=== PATIENT | female | born 1950 | race Caucasian/White ===

== ENCOUNTER → 2017-01-21 | Outpatient (CLI) | payer MEDICARE ==
--- NOTE | 2017-01-22 11:10 | RAD ---
EXAM DESCRIPTION: Wrist,Right 3 Views CLINICAL HISTORY: 66 years,Female ,WRIST PAIN COMPARISON: None FINDINGS: The right wrist demonstrates no evidence of fractures or acute abnormalities. Soft tissues appear unremarkable. Joint spaces are unremarkable. Except for the first metacarpal phalangeal joint and scaphoid trapezium which demonstrates mild narrowing. 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 And scaphoid trapezium. Electronically signed by: Robin Keys MD 01/22/2017 11:09 AM CDT
--- NOTE | 2017-01-22 11:16 | RAD ---
EXAM DESCRIPTION: Wrist,Left 3 Views CLINICAL HISTORY: 66 years,Female ,WRIST PAIN COMPARISON: None FINDINGS: The left wrist demonstrates no evidence of fractures or acute abnormalities. Soft tissues appear unremarkable. Joint spaces are moderate severe loss at the scaphoid trapezium joint and mild loss at the first metacarpal phalangeal joint. IMPRESSION: Left wrist demonstrates moderate severe osteoarthritic changes of the scaphoid trapezium joint and mild at the first metacarpal phalangeal joint. Electronically signed by: Robin Keys MD 01/22/2017 11:15 AM CDT
== END ==
LOC: RAD 08:42
PROVIDERS: ATTEND Orthopaedic Surgery
DX: M25.531 Pain in right wrist (principal); M25.532 Pain in left wrist; M19.032 Primary osteoarthritis, left wrist; M19.031 Primary osteoarthritis, right wrist

== ENCOUNTER → 2017-03-19 | Outpatient (CLI) | payer MEDICARE | END | disposition home or self-care (01) | LOC: RESP 08:47 | PROVIDERS: ATTEND Orthopaedic Surgery | DX: Z01.818 Encounter for other preprocedural examination (principal) ==

== ENCOUNTER 2017-04-03 05:56 | Day surgery (SDC) | payer MEDICARE ==
[2017-04-03] MEDS ORDERED: ceFAZolin SODIUM 1 GM VIAL ONE (06:00)
[2017-04-03] MEDS ORDERED: LACTATED RINGERS 1,000 ML ONE (06:02)
[2017-04-03] MEDS ORDERED: SODIUM CHL 0.9% 50ML MIN-BAG+ 50 ML IVPB ONE (06:02)
[2017-04-03] MEDS ORDERED: LIDOCAINE 1% 50 ML VIAL INJ ONE (07:51)
[2017-04-03] MEDS ORDERED: BUPIVACAINE 0.25% INJ 30 ML VIAL INJ ONE (07:51)
[2017-04-03] MEDS: ceFAZolin SODIUM 1 GM VIAL ONE ×2 (08:52→09:00)
[2017-04-03] MEDS: VANCOMYCIN HCL INJ 1,000 MG VIAL IVPB ONE ×2 (08:53→09:00)
--- NOTE | 2017-04-03 09:16 | OP ---
DATE OF PROCEDURE: 04/03/17 PREOPERATIVE DIAGNOSIS: 1. Carpal tunnel syndrome. POSTOPERATIVE DIAGNOSIS: 1. Carpal tunnel syndrome. PROCEDURE: 1. Carpal tunnel release. SURGEON: Vinh Miller MD. SCOW DERRICK OPERATOR: Edgardo Mccurdy CST, -Carmita. ANESTHESIA: Local with sedation. COMPLICATIONS: None. FINDINGS: Thickening of the transverse carpal ligament. INDICATION: The patient has a history consistent with carpal tunnel syndrome that has failed conservative measures. Because of the failure of conservative measures, the patient has requested operative intervention. After discussing the risks, benefits and alternatives to operative therapy, the patient has given informed consent for carpal tunnel release. PROCEDURE: The patient was brought to the Operating Room and placed in the supine position. Sedation was administered and local anesthetic was injected into the operative area under sterile conditions. After the injection of anesthetic, the arm was sterilely prepped and draped. A longitudinal incision was made directly overlying the transverse carpal ligament and blunt dissection was carried down to the ligament. The transverse carpal ligament was sharply transected along its length and a [place] elevator was used to ensure complete release of the ligament. Once release had been confirmed, the wound was thoroughly irrigated and the wound was closed with Nylon suture. A sterile dressing was placed and the patient was taken to the Day Surgery Unit. POSTOPERATIVE INSTRUCTIONS: The patient has been encouraged to do range of motion of the digits and will followup with us in two days. #[id number] [facility]
[2017-04-03] MEDS ORDERED: PROPOFOL 200 MG/20 ML VIAL IV ONE (10:00)
[2017-04-03 10:31] VITALS: BP 125/70; TEMP 97.3; O2SAT 95
== END 2017-04-03 09:55 | disposition home or self-care (01) ==
LOC: AMB 05:56
PROVIDERS: ATTEND Orthopaedic Surgery
DX: G56.01 Carpal tunnel syndrome, right upper limb (principal); I10 Essential (primary) hypertension; K21.9 Gastro-esophageal reflux disease without esophagitis; G47.30 Sleep apnea, unspecified; Z79.899 Other long term (current) drug therapy
CPT/HCPCS: 01810; 64721; J0690; J3370; J3490; J7050; J7120

== ENCOUNTER → 2017-04-30 | Outpatient (CLI) | payer MEDICARE | END | disposition home or self-care (01) | LOC: LAB.O 10:30 | PROVIDERS: ATTEND Orthopaedic Surgery | DX: Z01.818 Encounter for other preprocedural examination (principal) ==

== ENCOUNTER 2017-05-15 05:47 | Day surgery (SDC) | payer MEDICARE ==
--- NOTE | 2017-05-09 10:05 | HP ---
CHIEF COMPLAINT: Left hand numbness and pain. HISTORY OF PRESENT ILLNESS: Ms. Donnelly is a 66-year-old female with a history of pain in the left hand in addition to numbness. She has had pain that overlies not only the wrist, but also the area of the A1 fernandez on the third and fourth digits. She also complaints of locking in those areas. Because of these symptoms, she has requested operative intervention. She has had carpal tunnel release performed on the contralateral side and it was successful. After discussing the risks, benefits and alternatives to operative therapy, the patient has given informed consent. PAST SURGICAL HISTORY: 1. Hysterectomy. 2. Diskectomy. 3. Carpal tunnel release. MEDICATIONS: 1. Irbesartan. 2. Nifedipine. 3. Rosuvastatin. 4. Sertraline. 5. Trazodone. ALLERGIES: NO KNOWN DRUG ALLERGIES. CODE STATUS: Full code. IMMUNIZATIONS: Up to date. SOCIAL HISTORY: The patient does not drink, smoke or use any illicit drugs. FAMILY HISTORY: None pertinent to today's complaint. REVIEW OF SYSTEMS: Negative except as indicated in the History of Present Illness. PHYSICAL EXAMINATION: VITAL SIGNS: Blood pressure 129/70. Pulse 83. Height 5'2". Weight 151. MENTAL STATUS: The patient is awake, alert, and is able to give a good history and participate in the physical. The patient is oriented to person, place and time. SKIN: Normal tone and turgor. HEENT: Normocephalic, atraumatic. Pupils equal, round and reactive. Mucosal membranes are moist. NECK: Normal range of motion. No thyromegaly, no lymphadenopathy. CHEST: Normal respiratory excursion. CARDIAC: Regular rate and rhythm. No murmurs, rubs or gallops. MUSCULOSKELETAL: She has positive carpal compression test and positive Tinel' s. She has some very minor thenar atrophy. She does have full production team member strength. She does have pain to palpation in the area of the A1 fernandez of the third and fourth digits. She has palpable clicking at the A1 fernandez of the third and fourth digits as well. She has no deformity of the digits, no deformity in the hand and there is no malalignment. ASSESSMENT: 1. Carpal tunnel syndrome. 2. Trigger finger times two. PLAN: The plan at this point is for carpal tunnel release and trigger finger release times two. We have discussed the risks, benefits, and alternatives to that and the patient has given informed consent. [facility][id number] [facility]
[2017-05-15] MEDS ORDERED: BUPIVACAINE 0.25% INJ 30 ML VIAL INJ ONE (07:52)
[2017-05-15] MEDS ORDERED: ceFAZolin SODIUM 1 GM VIAL ONE (07:52)
[2017-05-15] MEDS ORDERED: LIDOCAINE 1% 50 ML VIAL INJ ONE (07:52)
[2017-05-15] MEDS ORDERED: SODIUM CHL 0.9% 50ML MIN-BAG+ 50 ML IVPB ONE (08:22)
[2017-05-15] MEDS ORDERED: LACTATED RINGERS 1,000 ML ONE (08:22)
[2017-05-15] MEDS ORDERED: MIDAZOLAM INJ 2 MG/2 ML VIAL ONE (09:37)
[2017-05-15] MEDS ORDERED: PROPOFOL 200 MG/20 ML VIAL IV ONE (10:00)
[2017-05-15] MEDS ORDERED: LIDOCAINE 1% 10 ML VIAL INJ ONE (10:00)
[2017-05-15] MEDS: ceFAZolin SODIUM 1 GM VIAL ONE ×2 (10:14→10:29)
[2017-05-15] MEDS: VANCOMYCIN HCL INJ 1,000 MG VIAL IVPB ONE ×2 (10:14→10:29)
[2017-05-15] MEDS ORDERED: HYDROcodone 5MG/APAP 325MG 1 EA TAB ONE (11:18)
[2017-05-15 12:11] VITALS: BP 120/74; TEMP 97.7; O2SAT 97
--- NOTE | 2017-05-17 11:02 | OP ---
DATE OF PROCEDURE: 05/15/2017 PREOPERATIVE DIAGNOSIS: 1. Carpal tunnel syndrome. 2. Trigger finger of the third and fourth digits. POSTOPERATIVE DIAGNOSIS: 1. Carpal tunnel syndrome. 2. Trigger finger of the third and fourth digits. PROCEDURE: 1. Carpal tunnel release. 2. A1 fernandez release. SURGEON: Vinh Miller MD. DUST HANDLER: Edgardo Mccurdy CST, SA-C. ANESTHESIA: Local with sedation. COMPLICATIONS: None. FINDINGS: 1. Thickening of the transverse carpal ligament. 2. Triggering at the A1 fernandez of the third and fourth digits. PROCEDURE: The patient was brought to the Operating Room and placed in the supine position. Sedation was administered and local anesthetic was injected into the operative area under sterile conditions. After the injection of anesthetic, the arm was sterilely prepped and draped. A longitudinal incision was made directly overlying the transverse carpal ligament and blunt dissection was carried down to the ligament. The transverse carpal ligament was sharply transected along its length and a [place] elevator was used to ensure complete release of the ligament. Once release had been confirmed, the wound was thoroughly irrigated and the wound was closed with Nylon suture. Attention was then focused on the third and fourth digits. Lidocaine was injected at the area of the A1 fernandez of both the third and fourth digits. Transverse incision was made directly overlying the A1 pulleys of the third and fourth digits and blunt dissection was carried down to the A1 feranndez. The A1 fernandez of both the third and fourth and digits was identified. The fernandez was transected and the fingers were flexed and extended. There was no clicking and no catching. After confirmation of transection of the A1 fernandez, both wounds were irrigated and closed with Nylon suture. Sterile dressing was placed over the entire hand. The patient was taken to the Day Surgery Unit. POSTOPERATIVE INSTRUCTIONS: The patient has been encouraged to do range of motion of the digits and will followup with us in two days. #[id number] [facility]
== END 2017-05-15 11:50 | disposition home or self-care (01) ==
LOC: AMB 05:47
PROVIDERS: ATTEND Orthopaedic Surgery
DX: G56.02 Carpal tunnel syndrome, left upper limb (principal); M65.332 Trigger finger, left middle finger; M65.342 Trigger finger, left ring finger; I10 Essential (primary) hypertension; Z79.899 Other long term (current) drug therapy
CPT/HCPCS: 01810; 26055; 64721; J0690; J2250; J3370; J3490; J7050; J7120

== ENCOUNTER → 2017-11-20 | Outpatient (CLI) | payer MEDICARE ==
--- NOTE | 2017-11-20 16:26 | RAD ---
EXAM DESCRIPTION: Knee,Right Complete CLINICAL HISTORY: 66 years, Female, KNEE PAIN COMPARISON: None TECHNIQUE: Four views of the right knee FINDINGS: No fracture or dislocation. Bones appear normally mineralized with normal trabecular pattern. Narrowed appearance of medial more than lateral compartments on frontal view. Mild spurring at the medial joint line and tibial spines. Lateral view shows normal position of the patella. Mild posterior patellar spurring with posterior surface irregularity and narrowing of the patellofemoral joint. Small ossific density above the patella is consistent with old trauma. No suprapatellar knee joint effusion. Normal contour of quadriceps and patellar tendons. Mild lateral tilt of the patella without subluxation on patellar sunrise view. Moderate lateral spurring of the patella and anterior femoral trochlea. IMPRESSION: Degenerative changes as described. Electronically signed by: Sharan Butler MD 11/20/2017 4:25 PM CDT
--- NOTE | 2017-11-20 16:28 | RAD ---
EXAM DESCRIPTION: Pelvis CLINICAL HISTORY: 66 years Female, HIP PAIN COMPARISON: None. FINDINGS: Multiple phleboliths in the pelvis. Degenerative narrowing of the disc spaces in the lower L-spine. Bones of the pelvic ring appear intact and osteopenic. Bone island in the proximal left femur. IMPRESSION: Negative for fracture. Degenerative changes of the lower L-spine. Electronically signed by: Sharan Butler MD 11/20/2017 4:26 PM CDT
== END ==
LOC: RAD 08:00
PROVIDERS: ATTEND Orthopaedic Surgery
DX: M25.561 Pain in right knee (principal); M25.551 Pain in right hip

== ENCOUNTER → 2018-06-12 | Outpatient (CLI) | payer MEDICARE ==
--- NOTE | 2018-06-12 11:31 | RAD ---
EXAM DESCRIPTION: Knee,Left Complete CLINICAL HISTORY: 67 years Female, PAIN IN LEFT KNEE TECHNIQUE: 4 views of the left knee were performed. COMPARISON: None available. FINDINGS: The visualized bones appear well mineralized. No acute fracture or dislocation. Tricompartmental osteoarthritis is noted with small suprapatellar joint effusion. The soft tissues appear grossly unremarkable. IMPRESSION: Tricompartmental osteoarthrosis with small suprapatellar joint effusion. Electronically signed by: Amrita Brenner MD 06/12/2018 11:28 AM [facility]
--- NOTE | 2018-06-12 11:33 | RAD ---
EXAM: Pelvis and hip CLINICAL HISTORY: Pain COMPARISON STUDY: November 20, 2017 TECHNICAL: AP pelvis FINDINGS: The pelvic ring is intact and negative. Both hips are in anatomic alignment. There is no identifiable fracture. There is no osseous abnormality. There are no significant degenerative changes of either hip. Mild degenerative changes are seen at the lower lumbar spine. IMPRESSION: Negative pelvis Electronically signed by: Zohaib Chowdhury MD 06/12/2018 11:31 AM [facility]
== END ==
LOC: RAD 08:11
PROVIDERS: ATTEND Orthopaedic Surgery
DX: M17.12 Unilateral primary osteoarthritis, left knee (principal); M25.562 Pain in left knee; M25.552 Pain in left hip

== ENCOUNTER → 2018-08-25 | Outpatient (CLI) | payer MEDICARE | LOC: LAB.O 09:50 | PROVIDERS: ATTEND Orthopaedic Surgery | DX: Z01.818 Encounter for other preprocedural examination (principal) ==

== ENCOUNTER → 2018-11-17 | Outpatient (CLI) | payer MEDICARE | LOC: LAB.O 09:50 | PROVIDERS: ATTEND Orthopaedic Surgery | DX: Z01.818 Encounter for other preprocedural examination (principal) ==

== ENCOUNTER 2018-12-19 05:31 | Inpatient (IN) | payer MEDICARE ==
[2018-12-19] MEDS ORDERED: TRANEXAMIC ACID 1,000 MG/10 ML VIAL ONE ×2 (05:55→05:56)
[2018-12-19] MEDS ORDERED: SODIUM CHL 0.9% 100ML MINI-BAG 100 ML IVPB ONE (05:55)
[2018-12-19] MEDS ORDERED: VANCOMYCIN HCL INJ 1,000 MG VIAL IVPB ONE ×2 (05:55→16:42)
[2018-12-19] MEDS ORDERED: LACTATED RINGERS 1,000 ML ONE (05:55)
[2018-12-19] MEDS ORDERED: ceFAZolin SODIUM 1 GM VIAL ONE ×4 (05:56→19:53)
[2018-12-19] MEDS ORDERED: SODIUM CHLORIDE 0.9% 100ML 100 ML IVPB ONE (05:56)
[2018-12-19] MEDS ORDERED: SODIUM CHLORIDE 0.9% 250ML 250 ML ONE ×2 (05:56→16:41)
--- NOTE | 2018-12-19 06:31 | RAD ---
EXAM: XR Chest, 2 Views CLINICAL HISTORY: The patient is 67 years old and is Female; preop exam knee replacement TECHNIQUE: Frontal and lateral views of the chest. COMPARISON: Chest radiograph from 07/26/2016 FINDINGS: LUNGS: Unremarkable. No consolidation. PLEURAL SPACE: Unremarkable. No pneumothorax. HEART: No significant enlargement of the cardiac silhouette. MEDIASTINUM: Unremarkable. BONES/JOINTS: No acute osseous findings. IMPRESSION: No acute findings visualized within the chest. Electronically signed by: Dawn Ibrahim MD 12/19/2018 6:29 AM CDT
[2018-12-19] MEDS ORDERED: ACETAMINOPHEN IV 1000MG 100 ML ONE (06:39)
[2018-12-19] MEDS ORDERED: MIDAZOLAM INJ 5 MG/5 ML VIAL ONE (06:40)
[2018-12-19] MEDS ORDERED: MORPHINE SULFATE *EPIDURAL* 0.5 MG/ML VIAL ONE (06:40)
[2018-12-19] MEDS ORDERED: fentaNYL CITRATE INJ 50 MCG/ML AMP ONE (06:40)
[2018-12-19] MEDS ORDERED: KETAMINE HCL 50 MG/ML SYG IV ONE (06:40)
[2018-12-19] MEDS: BUPIVACAINE 0.5% 30 ML VIAL INJ ONE ×2 (07:55→08:11)
[2018-12-19] MEDS: ceFAZolin SODIUM 1 GM VIAL ONE ×2 (07:55→08:38)
[2018-12-19] MEDS: BUPIVACAINE LIPOSOME 13.3 MG/ML VIAL INJ ONE ×2 (07:55→08:11)
[2018-12-19] MEDS: VANCOMYCIN HCL INJ 1,000 MG VIAL IVPB ONE ×2 (07:55→08:38)
--- NOTE | 2018-12-19 08:24 | HP ---
CHIEF COMPLAINT: Left knee pain. HISTORY OF PRESENT ILLNESS: Ms. Donnelly is a 67-year-old female with a history of severe knee pain. She has had pain that radiates all the way up to 10. She has had knee arthroscopy, steroid injection, Synvisc injection, activity modification and uses an assistive device. The pain continues to be sharp on a daily basis and she has not found relief. Because of her ongoing symptoms and difficulty with daily activities, she has requested operative intervention. After discussing the risks, benefits and alternatives to that, she has given informed consent. PAST SURGICAL HISTORY: 1. Bilateral carpal tunnel release. 2. Knee arthroscopy. MEDICATIONS: 1. Meloxicam. 2. Clobetasol. 3. Estring. 4. Irbesartan. 5. Nifedipine. 6. Nystatin. 7. Rosuvastatin. 8. Sertraline. ALLERGIES: NO KNOWN DRUG ALLERGIES. CODE STATUS: Full code. IMMUNIZATIONS: Up to date. SOCIAL HISTORY: The patient does not drink, smoke or use any illicit drugs. FAMILY HISTORY: None pertinent to today's complaint. REVIEW OF SYSTEMS: Negative except as indicated in the History of Present Illness. PHYSICAL EXAMINATION: VITAL SIGNS: Blood pressure 144/75. Pulse 80. Height 5'2". Weight 150 pounds. MENTAL STATUS: The patient is awake, alert, and is able to give a good history and participate in the physical. The patient is oriented to person, place and time. SKIN: Normal tone and turgor. HEENT: Normocephalic, atraumatic. Pupils equal, round and reactive. Mucosal membranes are moist. NECK: Normal range of motion. No thyromegaly, no lymphadenopathy. CHEST: Normal respiratory excursion. CARDIAC: Regular rate and rhythm. No murmurs, rubs or gallops. MUSCULOSKELETAL: The bilateral upper extremities show full active painless range of motion. She has intact sensation. Strength is 5/5. There is no crepitus and no deformity. There is no malalignment of the extremities and no laxity. The right lower extremity shows full active range of motion without significant discomfort. Sensation is intact. It is warm and well perfused. There is no malalignment. The left lower extremity shows full range of motion of the hip. She has intact sensation throughout the extremity and it is warm and well perfused. The knee is very tender diffusely to palpation. She has a minor effusion. She has crepitus throughout her range of motion and she does have full extension. Flexion is to about 125 degrees. There is no varus/valgus or anterior/posterior laxity. IMAGING: X-rays show arthritic changes. No acute bony abnormality noted. ASSESSMENT: 1. Arthritis, failed conservative measures. PLAN: The plan at this point is for total knee arthroplasty. We have exhausted more conservative measures and she has elected to proceed with this. We have discussed the risks, benefits, and alternatives to that and the patient has given informed consent. [facility][id number] [facility]
[2018-12-19] MEDS ORDERED: MORPHINE SULFATE INJ 10 MG/ML VIAL IM PRN (09:03)
[2018-12-19] MEDS ORDERED: NALOXONE HCL INJ 0.4 MG/ML VIAL IV PRN (09:03)
[2018-12-19] MEDS ORDERED: PROMETHAZINE HCL INJ 12.5 MG in SODIUM CHLORIDE 0.9% 50ML 50 ML IVPB PRN (09:03)
[2018-12-19] MEDS ORDERED: ONDANSETRON INJ 4 MG/2 ML VIAL IV PRN (09:03)
[2018-12-19] MEDS ORDERED: ACETAMINOPHEN 500 MG TAB PO PRN (09:03)
[2018-12-19] MEDS ORDERED: TEMAZEPAM 15 MG CAP PO PRN (09:03)
[2018-12-19] MEDS ORDERED: BENZOCAINE-MENTH LOZ (CEPACOL) 1 EA LOZ MT PRN (09:03)
[2018-12-19] MEDS ORDERED: BISACODYL SUPPOSITORY 10 MG PR PRN (09:03)
[2018-12-19] MEDS ORDERED: ZOLPIDEM TARTRATE 5 MG TAB PO PRN (09:03)
[2018-12-19] MEDS ORDERED: MORPHINE SULFATE INJ 10 MG/ML VIAL IV PRN (09:03)
[2018-12-19] MEDS ORDERED: SODIUM CHLORIDE 0.9% (FLUSH) 10 ML SYG IV PRN (09:03)
[2018-12-19] MEDS ORDERED: ACETAMINOPHEN 325 MG TAB PO PRN (09:03)
[2018-12-19] MEDS ORDERED: ALUMINUM & MAGNESIUM HYDROXIDE 30 ML UD PO PRN (09:03)
[2018-12-19] MEDS ORDERED: DEX 5% W/NACL 0.45% 1000ML 1,000 ML IVS PRN (09:03)
[2018-12-19] MEDS ORDERED: MAGNESIUM HYDROXIDE 30 ML UD PO PRN (09:03)
[2018-12-19] MEDS ORDERED: PROMETHAZINE HCL INJ 25 MG in SODIUM CHLORIDE 0.9% 50ML 50 ML IVPB PRN (09:03)
[2018-12-19] MEDS ORDERED: traMADol HCL 50 MG TAB PO PRN (09:03)
[2018-12-19] MEDS ORDERED: MORPHINE PCA 1 MG/ML 100 ML BAG IVPB SCH (09:30)
[2018-12-19] MEDS ORDERED: LIDOCAINE 1% 10 ML VIAL INJ ONE (10:00)
[2018-12-19] MEDS ORDERED: SODIUM CHLORIDE 0.9% 50 ML VIAL INJ ONE (10:00)
[2018-12-19] MEDS ORDERED: raNITIdine HCL INJ 25 MG/ML VIAL IV ONE (10:00)
[2018-12-19] MEDS ORDERED: PROPOFOL 200 MG/20 ML VIAL IV ONE (10:00)
[2018-12-19] MEDS ORDERED: diphenhydrAMINE HCL 50 MG/ML VIAL IV ONE (10:00)
[2018-12-19] MEDS ORDERED: DEXAMETHASONE INJ 10 MG/ML VIAL IV ONE (10:00)
--- NOTE | 2018-12-19 10:19 | RAD ---
EXAM DESCRIPTION: Left knee, 2 views CLINICAL HISTORY: Total knee arthroplasty FINDINGS/ IMPRESSION: Total knee arthroplasty without acute bony abnormality. Expected air in the soft tissues. No radiopaque foreign body Electronically signed by: Mac Spence MD 12/19/2018 10:18 AM CDT
[2018-12-19] MEDS: diphenhydrAMINE HCL 50 MG/ML VIAL IV PRN ×3 (11:00→20:33)
[2018-12-19] MEDS ORDERED: diphenhydrAMINE HCL 50 MG/ML VIAL ONE (11:26)
[2018-12-19] MEDS ORDERED: ceFAZolin SODIUM 2 GRAMS PREMI 2 GM in PREMIX BAG 1 BAG IVPB SCH (16:00)
[2018-12-19] MEDS ORDERED: SODIUM CHL 0.9% 50ML MIN-BAG+ 50 ML IVPB ONE ×2 (16:41→19:52)
[2018-12-19] MEDS: ceFAZolin SODIUM 1 GM in SODIUM CHL 0.9% 50ML MIN-BAG+ 50 ML IVPB SCH ×2 (16:46→23:26)
[2018-12-19] MEDS: CELECOXIB 100 MG CAP PO SCH (16:59)
[2018-12-19] MEDS: VANCOMYCIN HCL INJ 1,000 MG in SODIUM CHLORIDE 0.9% 250ML 250 ML IVPB SCH (18:00)
--- NOTE | 2018-12-19 19:41 | PN ---
DATE: 12/19/18 POSTOPERATIVE CHECK SUBJECTIVE: She is doing well and she has no pain right now. She does have a little bit of itching. OBJECTIVE: She is afebrile. Vital signs are stable. Dressing is clean, dry and intact. ASSESSMENT: 1. Status post total knee arthroplasty. PLAN: The plan at this point is for her to begin weightbearing as tolerated on postoperative day 1. [id number]
[2018-12-19] MEDS: IV SET AND CAP CHANGE INJ INJ SCH (19:45)
[2018-12-19] MEDS ORDERED: ENOXAPARIN SODIUM 30 MG/0.3 ML SYG SUBCU ONE (19:53)
--- NOTE | 2018-12-19 20:22 | OP ---
DATE OF PROCEDURE: PREOPERATIVE DIAGNOSIS: 1. Left knee osteoarthritis. POSTOPERATIVE DIAGNOSIS: 1. Left knee osteoarthritis. PROCEDURE: 1. Total knee arthroplasty. SURGEON: Vinh Miller M.D. COMMUNITY HEALTH NURSE SUPERVISOR: Edgardo Mccurdy CST, SA-C. ANESTHESIA: General anesthesia. COMPLICATIONS: None. FINDINGS: Severe osteoarthritis of the knee. INDICATION FOR PROCEDURE: Ms. Donnelly has a long history of pain in the knee that has been treated conservatively, however has failed to gain relief. Because of the ongoing pain and the failure of conservative measures, she has requested operative intervention. After discussing the risks, benefits, and alternatives to that she has given informed consent for total knee arthroplasty. PROCEDURE: The patient was brought to the Operating Room and placed in supine position. General anesthesia was induced and the patient's leg was sterilely prepped and draped. Following prepping and draping, the distal femur was exposed and using an intramedullary guide, the distal femoral cut was made. The appropriate sized cutting block was measured, pinned into place, and the anterior, posterior, and chamfer cuts were made. The ACL was transected and the tibia was subluxed. Both the medial and lateral menisci were removed. An intramedullary guide was used to make the proximal tibial cut. The appropriate sized base plate was placed and a trial polyethylene was placed. The trial femur was placed, the knee was reduced, and the knee was taken through a range of motion. The knee was stable in anterior, posterior, varus and valgus stress. The patella tracked anatomically without evidence of subluxation or dislocation. After trialing, the trial components were removed and the bony surfaces were thoroughly irrigated with saline. Following irrigation, the surfaces were dried and the final components were cemented into place. The excess cement was removed and the remaining cement was allowed to cure. The knee was again taken through a range of motion to confirm stability. The wound was then irrigated with saline and closure was performed using PDS to approximate the arthrotomy followed by closure of the subcutaneous tissues with a combination of running and interrupted Monocryl sutures. Sterile dressing was placed. The patient was awoken from anesthesia and taken to Recovery. POSTOPERATIVE INSTRUCTIONS: She will be weightbearing as tolerated on postoperative day 1. COMPONENTS: Possibility Space Triathlon knee size 3 femur, size 3 tibia, 11 mm insert. [facility][id number]
[2018-12-19] MEDS: CYCLOBENZAPRINE HCL 10 MG TAB PO PRN (20:32)
[2018-12-19] MEDS: DOCUSATE CALCIUM 240 MG CAP PO SCH (20:33)
[2018-12-19] MEDS: ENOXAPARIN SODIUM 30 MG/0.3 ML SYG SUBCU SCH (22:51)
[2018-12-20] MEDS: diphenhydrAMINE HCL 50 MG/ML VIAL IV PRN ×3 (02:06→14:13)
[2018-12-20] MEDS ORDERED: SODIUM CHLORIDE 0.9% 250ML 250 ML ONE (05:26)
[2018-12-20] MEDS ORDERED: NIFEdipine XL 30 MG TAB PO ONE ×2 (05:26→19:35)
[2018-12-20] MEDS ORDERED: VANCOMYCIN HCL INJ 1,000 MG VIAL IVPB ONE (05:26)
[2018-12-20] MEDS: VANCOMYCIN HCL INJ 1,000 MG in SODIUM CHLORIDE 0.9% 250ML 250 ML IVPB SCH (05:48)
[2018-12-20] MEDS: HYDROcodone 5MG/APAP 325MG 1 EA TAB PO PRN ×4 (05:50→19:53)
[2018-12-20] MEDS: CYCLOBENZAPRINE HCL 10 MG TAB PO PRN ×2 (05:50→14:13)
[2018-12-20] MEDS: IRBESARTAN HYDROCHLOROTHIAZIDE PO SCH (06:09)
[2018-12-20] MEDS: [UNRECOGNIZED DRUG - OTHER] PO SCH (06:09)
[2018-12-20] MEDS ORDERED: NIFEDIPINE 60 MG PO SCH (07:00)
[2018-12-20] MEDS ORDERED: SODIUM CHL 0.9% 50ML MIN-BAG+ 50 ML IVPB ONE (08:12)
[2018-12-20] MEDS ORDERED: ceFAZolin SODIUM 1 GM VIAL ONE (08:13)
[2018-12-20] MEDS: CELECOXIB 100 MG CAP PO SCH ×2 (08:17→18:14)
[2018-12-20] MEDS: ceFAZolin SODIUM 1 GM in SODIUM CHL 0.9% 50ML MIN-BAG+ 50 ML IVPB SCH (08:18)
[2018-12-20] MEDS: MAGNESIUM OXIDE 400 MG TAB PO SCH (09:22)
--- NOTE | 2018-12-20 10:16 | CONS ---
SUPERVISING PHYSICIAN: Jaden Reza MD REASON FOR CONSULTATION: Total left knee arthroplasty, postoperative follow. HISTORY OF PRESENT ILLNESS: Ms. Donnelly is a 67 year-old female patient with a longstanding history of severe knee pain. The pain had been radiating at 10 on pain level. She did have a previous arthroscopic of the knee with steroid injections, Synvisc injection, as well as physical therapy and assistive device. The pain in her knee continued despite outpatient management, conservative measures and because of ongoing increasing worsening symptoms and difficulty with activities of daily living, she requested that Dr. Miller do a total knee arthroplasty. Ms. Donnelly was admitted today for elective total knee arthroplasty, left knee. She had no intraoperative complications and was seen in immediate postoperative followup. She was stable at time of examination. PAST MEDICAL HISTORY: 1. Hypertension. 2. Hyperlipidemia. 3. Depression. PAST SURGICAL HISTORY: 1. Bilateral carpal tunnel release. 2. Left knee scope. 3. Hysterectomy. MEDICATIONS: 1. Nifedipine 60 mg daily. 2. Tramadol 50 mg for pain every 4 hours as needed. 3. Sertraline 50 mg every other day. 4. Rosuvastatin calcium 5 mg at bedtime. 5. Pomegranate 250 mg daily. 6. Irbesartan Hydrochlorothiazide one tablet daily. 7. Cranberry Azo 450 mg daily. 8. Estradiol vaginal 2 mg intravaginal. ALLERGIES: NO KNOWN DRUG ALLERGIES. FAMILY HISTORY: Father at age 74, complications from diabetes and congestive heart failure. Mother is in her 90s and currently living. She has no major medical problems. She has three sisters who are fairly health. SOCIAL HISTORY: The patient lives outside of [place]. She is . She does live alone and retired housewife. She has never smoked, does not drink alcohol or use illicit drugs. REVIEW OF SYSTEMS: . CONSTITUTIONAL: Denies any fevers, general malaise or unintentional weight loss. HEENT: Denies headaches, visual change, sore throat, nasal congestion, ear aches. CARDIOVASCULAR: Denies chest pain or palpitations, syncopal episodes or tachycardia. RESPIRATORY: Denies shortness of breath, wheezing, coughing. GASTROINTESTINAL: Denies nausea or vomiting, diarrhea, constipation or abdominal pain. GENITOURINARY: Denies dysuria, hematuria, polyuria. MUSCULOSKELETAL: As noted in history of present illness. SKIN: Negative for rashes or lesions or moles. NEUROLOGIC: Negative for seizure activity, ataxia, vision changes, syncopal episodes or other neurological deficits. HEMATOLOGIC: Negative for transfusion reaction or unexplained bleeding. PHYSICAL EXAM: LEFT EXTREMITY: The left leg had a bulky dressing in place with pulses distally strong and capillary refill brisk. LABORATORY: Postoperative hemoglobin and hematocrit pending. Initial hemoglobin 14.1 and hematocrit 41.3 on preoperative lab work. Chemistries showed normal creatinine at 0.5. Urine negative for any significant findings. She had a negative drug screen. RADIOLOGY: Chest x-ray per radiology interpretation on preoperative exam showed no acute findings. Postoperative knee x-ray per radiology interpretation showed total knee arthroplasty without acute bony abnormalities with expected air in the soft tissue, no radiopaque foreign bodies. ASSESSMENT: 1. Postoperative day zero for elective total left knee arthroplasty secondary to failure of treatment as an outpatient. 2. History of hypertension. 3. History of hyperlipidemia. 4. History of depression.. PLAN: Will follow the patient as she continues with her postoperative patient recovery. Will refer orthopedic issues to Dr. Miller and physical therapy. Will review her medications and resume those as appropriate. Will anticipate length of stay to be 2 to 3 days with possible discharge by Saturday, maybe Saturday. She still has not made a decision as to whether she will want to do home rehabilitation or [facility] given that [place] town. Will encourage bronchial hygiene. Until we can transition her to outpatient management, we will continue to monitor and treat as needed. #[id number] jr [facility]
[2018-12-20] MEDS: ENOXAPARIN SODIUM 30 MG/0.3 ML SYG SUBCU SCH ×2 (12:45→23:06)
--- NOTE | 2018-12-20 16:23 | PN ---
DATE: 12/20/18 SUPERVISING PHYSICIAN: Jaden Reza M.D. SUBJECTIVE: The patient is sitting up in her chair in her room. She is sleeping. She awakens easily. She is quite lethargic but she complains of itching as well as some moderate pain to that leg. We discussed that we would be transitioning her over to oral pain medications and that would decrease the itching. She felt that her pain was fairly well controlled otherwise. OBJECTIVE: VITAL SIGNS: Temperature 97, heart rate 76, blood pressure 125/73, respiratory rate 16, O2 sat 96% on room air. RESPIRATORY: Essentially clear to auscultation bilaterally. CARDIAC: Regular rate and rhythm. GASTROINTESTINAL: Abdomen is soft, nondistended, non-tender. Bowel sounds are positive. EXTREMITIES: Bilateral pedal pulses are +2. Her left knee has a dressing that is dry and intact. NEUROLOGIC: She is sleepy but awakens easily and she is oriented times three. LABORATORY: H&H is 10.8 and 32. All other labs and films have been reviewed via the EMR. ASSESSMENT: 1. Osteoarthritis of the left knee status post left total knee arthroplasty performed by Dr. Vinh Miller, orthopedic surgeon. Postoperative day #1. 2. History of hypertension. 3. History of hyperlipidemia. 4. History of depression. PLAN: We will continue present supportive care. Orthopedic issues will be per Dr. Vinh Miller, orthopedic surgeon. She will continue with her physical therapy for strengthening and conditioning. Otherwise I have encourage good pulmonary hygiene. She will transition from her IV pain medications to her oral. Hopefully that will decrease her itching. Will continue to monitor closely and follow as needed. #[id number] [facility]
[2018-12-20] MEDS: SIMVASTATIN 20 MG TAB PO SCH (20:48)
[2018-12-20] MEDS: DOCUSATE CALCIUM 240 MG CAP PO SCH (20:48)
[2018-12-21] MEDS: NIFEdipine XL 30 MG TAB PO SCH (06:06)
[2018-12-21] MEDS: IRBESARTAN HYDROCHLOROTHIAZIDE PO SCH (06:07)
[2018-12-21] MEDS: [UNRECOGNIZED DRUG - OTHER] PO SCH (06:07)
[2018-12-21] MEDS: HYDROcodone 5MG/APAP 325MG 1 EA TAB PO PRN ×5 (06:07→22:31)
[2018-12-21] MEDS: CELECOXIB 100 MG CAP PO SCH ×2 (07:51→17:27)
[2018-12-21] MEDS ORDERED: SERTRALINE HCL 50 MG TAB PO SCH (09:00)
[2018-12-21] MEDS: CYCLOBENZAPRINE HCL 10 MG TAB PO PRN ×2 (09:42→17:27)
[2018-12-21] MEDS: SODIUM CHLORIDE 0.9% (FLUSH) 10 ML SYG IV SCH ×2 (09:44→20:45)
[2018-12-21] MEDS: MAGNESIUM OXIDE 400 MG TAB PO SCH (09:44)
[2018-12-21] MEDS: ENOXAPARIN SODIUM 30 MG/0.3 ML SYG SUBCU SCH ×2 (11:30→23:17)
--- NOTE | 2018-12-21 15:19 | PN ---
DATE: 12/21/18 SUPERVISING PHYSICIAN: Jaden Reza M.D. SUBJECTIVE: The patient is sitting up in her chair. She is feeling much better than she did yesterday. Although her knee still hurts it continues to improve. She denies any nausea, vomiting, itchiness, chest pain or shortness of breath. She feels like she is also ambulating with her walker without any problems as well. OBJECTIVE: VITAL SIGNS: Temperature 98.4, heart rate 151/89, respiratory rate 20, O2 sat 94% on 2 liters nasal cannula. RESPIRATORY: Essentially clear to auscultation bilaterally. CARDIAC: Regular rate and rhythm. GASTROINTESTINAL: Abdomen is soft, nondistended, non-tender. Bowel sounds are positive. EXTREMITIES: Bilateral pedal pulses are palpable at +2. Her Ramakrishna bandage is wrapped around her left knee. There is no drainage noted with very minimal swelling. NEUROLOGIC: She is awake, alert and oriented times three. LABORATORY: There are no labs or films to report at this time. ASSESSMENT: 1. Osteoarthritis of the left knee status post left total knee arthroplasty performed by Dr. Vinh Miller, orthopedic surgeon. Postoperative day #2. 2. History of hypertension. 3. History of hyperlipidemia. 4. History of depression. PLAN: We will continue present supportive care. Orthopedic issues will be per Dr. Vinh Miller, orthopedic surgeon. She will continue today and tomorrow with her physical therapy for strengthening and conditioning. Hopefully she can be discharged tomorrow to have her outpatient physical therapy at [facility]'s outpatient facility, but until then I have encouraged good pulmonary hygiene. Will continue to monitor closely and follow as needed. #[id number] [facility]
--- NOTE | 2018-12-21 16:07 | PN ---
DATE: 12/20/18 SUBJECTIVE: She is doing well and her pain is well controlled. She is having some itching likely due to morphine. OBJECTIVE: She is afebrile. Vital signs are stable. Dressing in clean, dry and intact. ASSESSMENT: 1. Status post total knee arthroplasty. PLAN: The plan at this point is for her to continue on weightbearing as tolerated. [facility][id number]
--- NOTE | 2018-12-21 16:10 | PN ---
DATE: 12/21/18 SUBJECTIVE: She is doing well. She has been up to walking in the hallway. OBJECTIVE: She is afebrile. Vital signs are stable. Wound is clean. There are no signs or symptoms of infection. ASSESSMENT: 1. Status post total knee arthroplasty. PLAN: The plan at this point is for her continue on weightbearing as tolerated #[id number] [facility]
[2018-12-21] MEDS: DOCUSATE CALCIUM 240 MG CAP PO SCH (20:47)
[2018-12-21] MEDS: SIMVASTATIN 20 MG TAB PO SCH (20:47)
[2018-12-22] MEDS: HYDROcodone 5MG/APAP 325MG 1 EA TAB PO PRN ×2 (03:29→07:27)
[2018-12-22] MEDS: NIFEdipine XL 30 MG TAB PO SCH (06:26)
[2018-12-22] MEDS: [UNRECOGNIZED DRUG - OTHER] PO SCH (06:26)
[2018-12-22] MEDS: IRBESARTAN HYDROCHLOROTHIAZIDE PO SCH (06:26)
[2018-12-22] MEDS: CELECOXIB 100 MG CAP PO SCH (07:27)
[2018-12-22] MEDS: MAGNESIUM OXIDE 400 MG TAB PO SCH (08:25)
[2018-12-22] MEDS: IV SET AND CAP CHANGE INJ INJ SCH (08:26)
[2018-12-22] MEDS: SODIUM CHLORIDE 0.9% (FLUSH) 10 ML SYG IV SCH (08:26)
[2018-12-22 09:47] VITALS: O2SAT 95
[2018-12-22 10:48] VITALS: BP 127/77; TEMP 98.2
--- NOTE | 2018-12-22 11:26 | DS ---
SUPERVISING PHYSICIAN: Mac Thomas MD DISCHARGE DIAGNOSIS: 1. Osteoarthritis of the left knee status post left total knee arthroplasty performed by Dr. Vinh Miller, orthopedic surgeon. Postoperative day #3. 2. History of hypertension on medications. 3. History of hyperlipidemia. 4. History of depression. HISTORY OF PRESENT ILLNESS: This is a 67-year-old female patient with a longstanding history of severe knee pain. The pain had radiated all the way up to a 10 on pain level. She knee arthroscopy, steroid injections, Synvisc injection, as well as physical therapy and activity modification and has had to use assistive devices. The pain continued and she requested Dr. Vnih Miller for operative intervention. The patient was admitted to the hospital and had a left total knee arthroplasty performed by Dr. Vinh Miller, orthopedic surgeon. She had no problems intraoperatively and was admitted to the Medical/Surgical Floor postoperatively. HOSPITAL COURSE: The patient progressed routinely through her initial rehabilitation. She continued with her physical therapy for strengthening and conditioning. Her home medications were restarted. She did initially have some complaints of itching, but that stopped after she was changed to oral pain medication. She has completed the inpatient portion of her therapy and she will be discharged home today in stable condition. LABORATORY: Her initial CBC was unremarkable and her followup hemoglobin was 10.8 and hematocrit 32. Her initial electrolytes were within normal limits with the exception of her calcium slightly high at 10.9. Urinalysis was negative. UDS was negative. RADIOLOGY: As per the EMR. PLAN: The patient will be discharged in stable condition. She is to resume her previous diet as well as increase her activity as directed by physical therapy. She will go to outpatient physical therapy. [facility] [place] [facility] and rehab. She is to resume her previous medications plus she will have 9 additional days of Xarelto as well as some hydrocodone for pain and Flexeril for muscle relaxer. She is to followup with Dr. Miller within the next 1 to 2 weeks as previously scheduled. She is to call Dr. Miller's office or return to the hospital for any problems or complications. DISCHARGE MEDICATIONS: 1. Pomegranate. 2. Irbesartan/hydrochlorothiazide. 3. Vitamin D. 4. Sertraline. 5. Rosuvastatin. 6. Nifedipine. 7. Probiotic. 8. Tramadol. 9. Estradiol vaginal. 10. Cyclobenzaprine. 11. Hydrocodone. 12. Xarelto. [facility][id number]
[2018-12-22] MEDS ORDERED: BISACODYL SUPPOSITORY 10 MG PR ONE (21:00)
[2018-12-22] MEDS ORDERED: MAGNESIUM HYDROXIDE 30 ML UD PO ONE (21:00)
--- NOTE | 2019-01-07 08:51 | RAD ---
PROVIDED CLINICAL HISTORY/REASON FOR EXAM: LEFT TKA Findings/impression: One intraoperative fluoroscopic image of a left total knee arthroplasty. Dose: Not provided Time: 2.2 seconds Electronically signed by: Jose J Martinez MD 01/07/2019 8:50 AM CDT
== END 2018-12-22 10:51 | disposition home or self-care (01) | DRG 470 ==
LOC: AMB 05:31 → MS 10:27
PROVIDERS: ADMIT Orthopaedic Surgery; ATTEND Nurse Practitioner Acute Care
PROC: 0SRD0J9 Replacement of Left Knee Joint with Synthetic Substitute, Cemented, Open Approach (ICD-10-PCS; principal; 2018-12-19 06:57)
DX: M17.12 Unilateral primary osteoarthritis, left knee (principal); L29.9 Pruritus, unspecified; T40.2X5A Adverse effect of other opioids, initial encounter; I10 Essential (primary) hypertension; E78.5 Hyperlipidemia, unspecified; F32.9 Major depressive disorder, single episode, unspecified; Y92.230 Patient room in hospital as the place of occurrence of the external cause; Z79.891 Long term (current) use of opiate analgesic; Z79.899 Other long term (current) drug therapy; Z79.1 Long term (current) use of non-steroidal anti-inflammatories (NSAID)